=== PATIENT | male | born 1990 | race Caucasian/White ===

== ENCOUNTER 2020-01-06 20:35 | Emergency (ER) | payer BC, SELFPAY ==
[2020-01-06 20:40] VITALS: BP 140/88; PULSE 69; RESP 16; TEMP 36.6; O2SAT 96
--- NOTE | 2020-01-06 20:55 | W.ED.GENAD ---
Discharge Plan Disposition Patient Disposition: HOME Condition: Stable Discharge Details Chief Complaint: EyeProblem Clinical Impression: Corneal abrasion, right, Chemosis of right conjunctiva Primary Care Provider: Derik Donis ED Provider: Nel King Home Meds and New Rx's Prescriptions: New polymyxin B sulf-trimethoprim 10,000 unit- 1 mg/mL drops 2 drp OP Q3H 7 Days Qty: 10 RF: 1 No Action No Known Home Meds RF: 0 Discharge Instructions Instructions: Corneal Abrasion (ED) Additional Instructions: Use drops as directed you may patch her eye for comfort if needed. Wear sunglasses as discussed. Follow-up with ophthalmology [facility] within 3 to 5 days. Do not rub or put anything into your eye other than eyedrops. [address] , [place] [address] ? ~1.6 mi Follow up with primary care provider in 3-5 days. Return to ED sooner if any worsening or concerns. Increase oral fluids. Please take Tylenol or Ibuprofen with food every 4-6 hours as needed for pain and swelling. Referrals: Boris Ham MD [ [facility] STAFF PHYSICIAN] - Medical Decision Making 21-year-old male presents to the ER with right eye erythema, irritation which began approximately 2 hours ago while at the gym. Patient states that he did not know if something got into his eye but felt the sensation that something was in his eye and was rubbing his eye. He presents with conjunctival swelling, injected conjunctiva and clear tearing. He denies any blurry vision visual acuity upon initial presentation is 20/20. Please see Peng lamp eye exam as noted in PE above. No foreign body visualized, there was uptake of dye as noted above, fluorescein was rinsed out with saline eyedrops. Patient tolerated well. Patient placed on polymyxin B trimethoprim ophthalmic drops 2 drops to the affected eye every 3 hours while awake x7 days. Instructed to follow-up with [facility] eye care within 3 to 5 days. Verbalizes understanding. Discussed option to patch eye if needed and to wear sunglasses. Strict return instructions discussed. This text was generated using [employer]ed[employer] system, please disregard any oddities of phrase or misspellings. HPI General Mode of arrival: ambulatory. Date/Time Provider Initiated Documentation: 01/06/20 20:44. Limitations to Documentation: no limitations. Information obtained by: patient. HPI Narrative: 21-year-old male presents to the ER with right eye erythema, irritation which began approximately 2 hours ago while at the gym. Patient states that he did not know if something got into his eye but felt the sensation that something was in his eye and was rubbing his eye. He presents with conjunctival swelling, injected conjunctiva and clear tearing. He denies any blurry vision visual acuity upon initial presentation is 20/20. Related Data Home Medications Medication Instructions Recorded Confirmed Unknown [No Known Home Meds] 01/06/20 01/06/20 polymyxin B sulf-trimethoprim 2 drp OP Q3H 7 Days #10 ml 01/06/20 Previous Rx's Medication Instructions Recorded polymyxin B sulf-trimethoprim 2 drp OP Q3H 7 Days #10 ml 01/06/20 Allergies Allergy/AdvReac Type Severity Reaction Status Date / Time No Known Allergies Allergy Unverified 01/06/20 20:44 General Stated Complaint: EyeProblem RYDER: 4 Review of Systems All systems reviewed & are unremarkable except as noted in HPI and below Constitutional Constitutional: Reports as per HPI, Denies body ache(s), Denies fatigue, Denies headache(s) and Denies weakness Eyes Eyes: Denies blurry vision, Reports irritation (Right eye, swollen conjunctiva), Denies loss of peripheral vision, Denies loss of vision and Denies photophobia ENT Ears, Nose, Mouth, and Throat: Denies dental pain, Denies dysphagia, Denies dizziness, Denies otalgia, Denies facial pain, Denies headache(s), Denies mouth pain, Denies nasal discharge, Denies nasal trauma, Denies tinnitus, Denies sinus pain, Denies sinus pressure and Denies throat swelling Cardiovascular Cardiovascular: Reports system reviewed and no additional complaints, except as documented Respiratory Respiratory: Reports system reviewed and no additional complaints, except as documented Gastrointestinal Gastrointestinal: Denies dysphagia Neurologic Neurologic: Denies dizziness, Denies headache(s), Denies loss of vision and Denies weakness Endocrine Endocrine: Denies fatigue Allergic/Immunologic Allergic/Immunologic: Denies throat swelling [facility] Medical History History of torn meniscus of left knee (Acute) Social History Smoking/Tobacco Use Status: Never Alcohol Intake: never Substance use type: does not use Do you feel safe at home: Yes Do you feel safe in your relationship?: Yes Exam Narrative Exam Narrative: Constitutional: Alert and oriented x3. Appears stated age. Normal body habitus. Head: Normocephalic, no trauma. Eyes: Pupils PERRLA, Red reflex noted, EOM's intact. Right lower eyelid slightly swollen. Lateral conjunctive a swollen, injected conjunctivea. ENT: Bilateral TM's WNL, External ear normal to inspection, no mastoid TTP, swelling, or erythema, Nasal turbinates WNL, no nasal discharge. Normal dentition, Posterior pharynx WNL, no exudate. Chest: RRR, Normal S1, S2, distal pulses intact. Resp: Lungs clear to auscultation bilaterally, no wheezes, rales, or rhonchi. Musculoskeletal: Normal gait, 5/5 strength to all four extremities. Skin: No suspicious rashes or lesions. Capillary refill less than 2 sec. Neurologic: Cranial nerves II-XII intact. Alert and oriented x 3. DTR's intact. Hematologic/Lymphatic: No ecchymosis, no lymphadenopathy. Eyes Visual Ogden: normal visual ogden by confrontation Alignment and Position: alignment normal Periorbital: periorbital findings abnormal right (Lower lid swollen) Conjunctivae: conjunctival abnormality right conjunctival chemosis, conjunctival injection and discharge (Clear tearing) Cornea: corneas abnormal on the right fluorescein used, abrasion central, linear and at the following clock position (9 and 3) and edema; with no foreign body noted and without ulcerations and fluorescein used Eyes/upper lids images: 1. Corneal abrasion, uptake dye 2. Corneal abrasion, dye uptake 3. corneal abrasion, dye uptake 4. Swelling to conjunctiva Chemosis Course Vital Signs Vital signs: Vital Signs Temperature 36.6 C 01/06/20 20:40 Pulse 69 01/06/20 20:40 Respiratory Rate 16 01/06/20 20:40 Blood Pressure 140/88 01/06/20 20:40 Pulse Oximetry 96 01/06/20 20:40 Temperature 36.6 C 01/06/20 20:40 Temperature Source Temporal Artery Scan 01/06/20 20:40 Pulse 69 01/06/20 20:40 Respiratory Rate 16 01/06/20 20:40 Respiratory Effort Non-Labored 01/06/20 20:44 Blood Pressure 140/88 01/06/20 20:40 Pulse Oximetry 96 01/06/20 20:40 Pain Level 6 01/06/20 20:40
[2020-01-06] MEDS: Tetracaine 0.5% 4 ML BTL (21:16)
[2020-01-06] MEDS: Fluorescein STRIPS 100/BOX 1 MG (21:16)
[2020-01-06] MEDS: Balanced Salt Solution 15 ML BTL (21:16)
[2020-01-06 22:00] VITALS: BP 140/88; PULSE 69; RESP 16; TEMP 36.6; O2SAT 96
== END 2020-01-06 22:10 | disposition home or self-care (01) ==
LOC: ER 22:02
PROVIDERS: Emergency Provider Registered Nurse Emergency; PCP Internal Medicine
DX: S05.01XA Injury of conjunctiva and corneal abrasion without foreign body, right eye, initial encounter (principal); H11.421 Conjunctival edema, right eye; X58.XXXA Exposure to other specified factors, initial encounter
CPT/HCPCS: 99284; 99283

== ENCOUNTER 2021-12-24 11:32 | Outpatient (REF) | payer BC, SELFPAY ==
[2021-12-24 14:51] LABS: Abs Immature Grans 0.03 10^3/uL (0.0-0.06); Absolute Basophil Count 0.05 10^3/uL (0.0-0.2); Absolute Eosinophil Count 0.12 10^3/uL (0.0-0.7); Absolute Lymphocyte Count 0.87 10^3/uL (1.2-3.4); Absolute Monocyte Count 0.59 10^3/uL (0.1-0.8); Absolute Neutrophil Count 5.84 10^3/uL (1.2-6.7); Basophils % 0.7; Eosinophils % 1.6; HCT 43.6 % (40.0-50.0); HGB 14.4 g/dL (13.5-17.5); Immature Grans % 0.4; Lymphocytes % 11.6; MCH 29.9 pg (27.0-33.0); MCV 91 fL (80-95); MPV 9.1 fL (8.0-11.0); Monocytes % 7.9; Neutrophils % 77.8; Platelet Count 245 10^3/uL (130-400); RBC 4.82 10^6/uL (4.36-5.78); RDW 11.7 % (11.8-14.1); RDW-SD 39.1 fL
[2021-12-24 14:53] LABS: ESR 4 mm/hr (0-15)
[2021-12-25 09:30] LABS: Cyclic Citrullinated Peptide <2.5 U/mL (<5.0)
[2021-12-25 11:00] LABS: Lyme Ab w Rflx to Lyme Confirm Negative (Negative)
== END 2021-12-24 11:33 | disposition home or self-care (01) ==
LOC: NCHCN 11:32
PROVIDERS: PCP Internal Medicine; Visit Provider Internal Medicine
DX: M13.80 Other specified arthritis, unspecified site (principal)
CPT/HCPCS: 85652; 86200; 85025; 86140; 86618

== ENCOUNTER 2023-07-07 15:08 | Outpatient (REF) | payer BC, SELFPAY ==
[2023-07-08 10:47] LABS: IgA 188 mg/dL (85-499); Interpretation (See Note); Tissue Transglutaminase IgA <4.0 CU (<20.0)
== END 2023-07-07 15:09 | disposition home or self-care (01) ==
LOC: NCHCN 15:08
PROVIDERS: PCP Internal Medicine; Visit Provider Family Medicine
DX: R10.9 Unspecified abdominal pain (principal)
CPT/HCPCS: 82784; 83516

== ENCOUNTER 2023-10-14 08:32 | Outpatient (REF) | payer BC, SELFPAY ==
[2023-10-16 17:08] LABS: Calprotectin <50.0 mcg/g
== END 2023-10-14 08:33 | disposition home or self-care (01) ==
LOC: NCHCN 08:32
PROVIDERS: PCP Family Medicine; Visit Provider Family Medicine
DX: K52.9 Noninfective gastroenteritis and colitis, unspecified (principal)
CPT/HCPCS: 87329; 83630; 83993

== ENCOUNTER 2024-12-22 14:15 | Outpatient (CLI) | payer OTHER, SELFPAY ==
--- NOTE | 2024-12-22 14:00 | DI.RAD_ITS ---
Exam(s) XR KNEE LT 3V AP,LAT,ARELY EXAM: XR KNEE LT 3V AP,LAT,ARELY CLINICAL HISTORY: left knee pain. TECHNIQUE: 2D digital imaging was performed. Three views. COMPARISON: No exams were available for comparison FINDINGS: BONES: No acute fracture is present. No bony destructive lesion is seen. Bony defect related to ACL repair. JOINTS: The knee is normally aligned. A moderate to large joint effusion is seen. Smoothly marginated tiny bony density projecting near the tibial spines. The joint spaces are maintained. Minimal periarticular spurring. SOFT TISSUE: Normal. IMPRESSION: Joint effusion. Minimal degenerative changes. Status post ACL repair. DATA REPOSITORY: RADIATION DOSE DELIVERED:
== END 2024-12-22 14:16 | disposition home or self-care (01) ==
LOC: DIORS 14:15
PROVIDERS: PCP Family Medicine; Visit Provider Physician Assistant
DX: M25.562 Pain in left knee (principal); M17.12 Unilateral primary osteoarthritis, left knee
CPT/HCPCS: 73562

== ENCOUNTER 2024-12-27 03:36 | Outpatient (CLI) | payer OTHER, SELFPAY ==
--- NOTE | 2024-12-27 09:00 | DI.MRI_ITS ---
Exam(s) MR LOWER JOINT LT WO EXAM: MR LOWER JOINT LT WO CLINICAL HISTORY: PAIN, BUCKET HANDLE TEAR MEDIAL MENISCUS LT KNEE, S83.212A. TECHNIQUE: Multiplanar multisequence MRI was performed. COMPARISON: MR MR KNEE LEFT WO CONTRAST from 08/17/2019 CR XR KNEE LT 3V AP,LAT,ARELY from 12/22/2024 FINDINGS: BONES: There is no fracture or contusion pattern. Bony defect in the distal femur and proximal tibia related to previous ACL repair. JOINTS: A moderate-sized joint effusion is present. Articular cartilage: Patellofemoral joint: There is a focal defect at the patellar apex extending down to but not involving underlying bone. There is some fissuring in the adjacent aspect of the distal femoral cartilage. This is new when compared the prior exam. Medial femoral tibial joint: Articular cartilage is unremarkable. Lateral femoral tibial joint: Articular cartilage is unremarkable. LIGAMENTS/TENDONS: Anterior Cruciate: The ACL repair is intact. Posterior Cruciate: Unremarkable. Medial Collateral:Unremarkable. Lateral Collateral ligament complex: Unremarkable. Extensor mechanism: Unremarkable. Medial retinaculum: Unremarkable. Lateral retinaculum: Unremarkable. Popliteus: Unremarkable. MENISCI: The medial meniscus again shows a bucket-handle tear which appears unchanged when compared with the previous exam. There is has been some further degeneration of the medial meniscus. The lateral meniscus is unremarkable. MUSCLES: Mild edema in the posterior musculature. SOFT TISSUES: Artifact in the medial soft tissues related to previous surgery. IMPRESSION: The ACL repair is intact. Bucket-handle tear of the medial meniscus which appears unchanged from the prior exam. There are degenerative changes of the medial meniscus. Focal cartilage defect in the patellar apex and small defects in the adjacent aspect of the distal femur. Moderate-sized joint effusion. DATA REPOSITORY:
== END 2024-12-27 03:56 ==
PROVIDERS: PCP Family Medicine; Visit Provider Student in an Organized Health Care Education/Training Program
DX: S83.212A Bucket-handle tear of medial meniscus, current injury, left knee, initial encounter (principal); X58.XXXA Exposure to other specified factors, initial encounter
CPT/HCPCS: 73721

== ENCOUNTER 2025-01-06 09:26 | Day surgery (SDC) | payer OTHER, SELFPAY ==
[2025-01-06] VITALS (21 sets, daily range): BP systolic 89–133; BP diastolic 42–78; PULSE 63–84; RESP 14–16; TEMP 35.9–36.8; O2SAT 88–100; BMI 20.9
--- NOTE | 2025-01-06 07:14 | W.PM.DSUDISC ---
Date of service: 01/06/25 Discharge Plan Disposition Patient Disposition: Home Condition: Stable Discharge Details Attending Provider: Gordon Moore Primary Care Provider: Chinedu Mcfarlane Home Meds and New Rx's Prescriptions: New aspirin 81 mg capsule 81 mg PO BID 14 Days Qty: 28 0RF naproxen 250 mg tablet 250 - 500 mg PO BID PRN (Reason: moderate pain and swelling) Qty: 40 0RF oxycodone 5 mg tablet 5 - 10 mg PO .q4-6h MDD 30 mg PRN (Reason: severe pain) Qty: 18 0RF Continued mecobalamin (vitamin B12) 500 mcg tablet,chewable 500 mcg PO DAILY Discharge Instructions Additional Instructions: Surgery: Left knee arthroscopy with subtotal medial meniscectomy, trochlear chondroplasty, and remove of hardware 01/06/25; Recurrent failed bucket-handle medial meniscus tear, intact prior ACL reconstruction. Activity: Weightbearing as tolerated. Advance range of motion as comfort allows. No knee brace or crutches needed as soon as comfortable. Recommend avoiding sports, pivoting, and squatting for 6-8 weeks. A physical therapy prescription will be sent electronically to start in about 3 weeks. Prescriptions: Aspirin 81 mg take 1 daily to prevent a blood clot for 14 days, starting tomorrow Naproxen 250 mg take 1-2 every 12 hours with a meal as needed for moderate pain Oxycodone 5 mg take 1-2 every 4-6 hours as needed for severe pain You may use [id number]-wos-[id number] Tylenol (acetaminophen) as needed for mild pain. These pain medications may be taken all at once or in different combinations as needed. Also, recommend Colace (docusate) as a stool softener as surgery and pain medicine cause constipation. You may try zyqh-jvc-[id number] diphenhydramine (Benadryl) 25-50 mg nightly as a sleep aid Dressings: Leave dressing in place for 3 days. May then remove and leave open to air or cover incisions with Band-Aids. Leave the sticky Steri-Strips in place until they fall off or remove them after you shower. May shower after 5 days. Follow-up: 10-[address] Moore You may take off the leg compression stockings this evening at home. You may also leave them on a few days longer if you have a history of leg swelling or edema. Let us know right away if you develop any redness, drainage, fevers, chest pain, or trouble breathing. Do not drink alcohol or drive for at least 24 hours after anesthesia. Please call the office during business hours with any questions or concerns. Discharge Orders Discharge Orders: Discharge Order (Routine); Ordered 01/06/25 Ordered By: Edwige Ibrahim DS: Diagnosis Discharge Diagnosis (1) Bucket handle tear of medial meniscus of left knee: Status: Acute
--- NOTE | 2025-01-06 07:23 | ROE_ITS ---
Operative Note Operative Note PRE-OP DIAGNOSIS: Left knee 1. Recurrent displaced bucket-handle medial meniscus tear/failed revision repair 2. Prior ACL reconstruction POST-OP DIAGNOSIS: same PROCEDURE: Left knee 1. Subtotal medial meniscectomy, CPT #83750 2. Chondroplasty, CPT #45770: Trochlea 3. Removal hardware, CPT #74597: Permanent plastic and suture material from prior failed meniscus repair SURGEON: Gordon Moore WET PROCESS ASSISTANT HEAD MILLER: None None ANESTHESIA TYPE: Local By Surgeon and General LMA/ETT Refer to Anesthesia Record ESTIMATED BLOOD LOSS: 5 PATHOLOGY: none sent TOURNIQUET TIME: 0 Patient was transported to: PACU Patient's condition: stable Indications: Please see complete medical record for details. Findings: Exam under anesthesia: Resting about 5-10 degrees short of full extension, full extension once relax. Stable Hermelinda with firm endpoint probably a couple millimeters of increased translation. Negative pivot shift. Stable varus valgus. Arthroscopic findings: About 2 x 2 cm area of central trochlea moderate to high- grade cartilage loss chondromalacia with some loose unstable edge flaps and a central about 1 x 1 cm cartilage unstable island. Mild to moderate patellar and medial compartment chondromalacia. Intact lateral meniscus lateral cartilage. Intact prior ACL reconstruction. Displaced medial bucket-handle meniscus tearing with the displaced tissue having poor quality and evidence of prior surgery with loose sutures and holes from needle punctures. Diminutive meniscus remnant posterior horn through body with some horizontal tearing into the capsule. Moderately significant narrowing of the medial compartment. Procedure Description: In the operating room, general anesthesia was induced. The patient was positioned supine on the operating room table. All bony prominences were well- padded. Preoperative antibiotics were administered. The knee was prepped and draped in the usual sterile fashion. The correct patient, procedure, and side of the procedure were all verified prior to incision. Exam under anesthesia was performed. 10 cc of 0.25% bupivacaine containing epinephrine was infiltrated about the planned anteromedial and anterolateral knee arthroscopy portals. An additional 10 cc was infiltrated about the medial compartment. Prior portals were established and a complete diagnostic arthroscopy was performed with relevant findings detailed above. The mechanical shaver was used to remove some inflamed synovium from the suprapatellar, patellofemoral, and anterior intercondylar areas. The central trochlea had obvious cartilage problem with evidence of prior cartilage surgery. The x-rays and MRI had a central area concerning for potential loose body and on probing the central cartilage region and the lesion was loose and unstable and had to be removed with the biters and then shaver. The remnant and margins were then contoured as best possible with the torpedo shaver. The medial meniscus was displaced into the intercondylar area. The displaced tissue could be reduced into the medial compartment, but it was of poor quality. It was fibrinous and falling apart on simple probing. There was still multiple punctures from prior repairs needle all?inside devices and suture material and permanent plastic material loose on the displaced tissue and on the remnant. It was not at all appropriate for a third attempted repair. The shaver was brought in and quite readily transected and removed the majority of the displaced tissue. Into the more anterior part of the body biters were used followed by the torpedo shaver to contour the margin. The shaver was also used as well as some graspers to remove some permanent suture material and permanent plastic all inside device from the body area. It was challenging to access the posterior horn nearing the root due to rather significant narrowing, but various technique s were used in the majority of the displaced posterior horn tissue removed with biters and contoured the trapezial shaver. There was moderate medial chondromalacia that was minimally debrided. The remaining horizontal diminutive peripheral remnant was lightly resected of some horizontal tearing and some fibrinous tissue and to ensure no prominent prior repair devices causing any trouble. Under direct arthroscopic visualization an 18-gauge needle was passed into the knee from superolateral into the suprapatellar pouch. The knee was copiously irrigated with arthroscopic fluid until there was a clear effluent before being drained of all fluid. The anteromedial and anterolateral portals were closed in 3-0 Monocryl in a buried interrupted fashion. 10 cc of 0.25% bupivacaine was infiltrated into the knee through the previously placed needle. Mastisol, Steri-Strips, and 4 x 4 gauze were applied over the incisions. The knee was then wrapped gently with an ROULA comressive bandage. The patient awoke from anesthesia without complication and was transferred to the recovery room in a stable condition. Despite the young age, the degenerative changes present would contraindicate any meniscus allograft transplant. The prior ACL reconstruction with some laxity and trochlear chondromalacia might make total knee arthroplasty versus partial medial unicondylar knee arthroplasty the best definitive treatment if arthritis progresses. Date of Procedure: 01/06/25
[2025-01-06] MEDS: Lactated Ringers 1,000 ML 30 ML IV (10:06)
--- NOTE | 2025-01-06 10:26 | W.ANESPRE ---
General Info Date of Service Date Performed: 01/06/25 Height: 6 ft Weight: 70 kg Body Mass Index (BMI): 20.9 Surgical Procedure: Operation Date: 01/06/25 10:55 Proposed Procedure Side Surgeon p Knee Arthroscopy w/ bucket handle medial Meniscus Repair vs meniscectomy, any indication chondral and synovial surgery Left Gordon Moore MD Meds Allergies and Home Medications Allergies Allergy/AdvReac Type Severity Reaction Status Date / Time No Known Allergies Allergy Verified 01/06/25 09:41 Home Medication ?Medication ?Instructions ?Recorded mecobalamin (vitamin B12) 500 mcg 500 mcg PO DAILY 05/26/24 chewable tablet Current Visit Medications: Current Medications Generic Name Dose Route Start Last Admin Trade Name Freq PRN Reason Stop Dose Admin Ringer's Solution 1,000 mls @ 30 mls/hr 01/06/25 06:00 01/06/25 10:06 IV 01/06/25 23:59 30 mls/hr INFUSION ANGELES Administration Cefazolin Sodium/Dextrose 2 gm in 50 mls @ 100 mls/hr 01/06/25 06:00 Ancef Duplex IVPB 01/06/25 23:59 PREOP ANGELES Tranexamic Acid/Sodium Chloride 1,000 mg in 100 mls @ 600 mls/hr 01/06/25 06:00 IVPB 01/06/25 23:59 PREOP ANGELES IV Miscellaneous Supplies 1 each 01/06/25 06:00 Iv Access IV 01/06/25 23:59 DIRECTED ANGELES Oxycodone HCl 0 mg 01/06/25 07:13 Oxycodone 5 Mg Tab PO 02/05/25 07:12 Q3H PRN PRN Pain Sodium Chloride 0 ml 01/06/25 06:00 Normal Saline Flush 10 Ml Syr IV 01/06/25 23:59 PRN PRN Sodium Chloride 0 ml 01/06/25 06:00 Normal Saline 10 Ml Vial IJ 01/06/25 23:59 DIRECTED PRN Sterile Water 0 ml 01/06/25 06:00 Water,Injection,Sterile 10 Ml Vial IJ 01/06/25 23:59 DIRECTED PRN PFSH Active Problems Active Problems: Problem Status Onset Code Bucket handle tear of medial meniscus of left knee Acute 12/17/24 S83.212A Normal hearing exam Acute Z01.10 Tinnitus of right ear Acute H93.11 Medical History Medical History Vegan diet History of gluten intolerance Healthy adult on routine physical examination Chronic diarrhea Impacted cerumen Somatoform autonomic dysfunction History of torn meniscus of left knee Surgical History Surgical History Hx of arthroscopic knee surgery x3 Hx of wisdom tooth extraction Hx of reconstruction of anterior cruciate ligament tear Tobacco Smoking/Tobacco Use Status: Never Passive smoking exposure: No Alcohol Alcohol Intake: never Substance Use Substance use: Never Substance use type: does not use Vital Signs and Lab Results Vital Signs Most Recent Vital Signs in EMR: Most Recent Vital Signs Temp Pulse Resp BP Pulse Ox 36.8 C 81 16 133/78 100 01/06/25 09:35 01/06/25 09:35 01/06/25 09:35 01/06/25 09:35 01/06/25 09:35 Anesthesia Assessment and Plan Anesthesia History Personal History: No History of Anesthesia Complications Family History: No Family History of Anesthesia Complications Exercise Tolerance Exercise Tolerance: Metabolic Equivalents>4 Pertinent Negatives Pertinent Negatives: No Symptoms of GERD, No Major Cardiovascular Symptoms or Complaints, No Major Pulmonary Symptoms or Complaints and No History of CVA/TIA Cardiac & Pulmonary Exam Cardiac Exam: Normal S1/S2 Heart Sounds Pulmonary Exam: Clear Bilateral Breath Sounds Implantable Cardiac Device Does patient have a Pacemaker or an ICD?: No Airway Exam Known Difficult Airway: No Mallampati Class: 1 Mouth Opening: Normal (> 3cm) Thyromental Distance: Greater than 3 cm Neck Range of Motion: Full ROM Neck Circumference: Normal Teeth Condition: Normal Dentition ASA Classification ASA Score: ASA 2 Emergency Case?: No NPO Status NPO Status: NPO Clears >2 hours, Solids >8 hours Anesthesia Plan Resuscitation Status: Full Code Anesthesia Technique: General Anesthesia Airway Planned: Endotracheal Tube Monitors Used: Standard Monitors
[2025-01-06] MEDS: ceFAZolin 2 GM/50 ML BAG IVPB (12:01)
[2025-01-06] MEDS: TRANEXAMIC ACID/SOD. CHL. 1,000 MG/100 ML BAG 600 MG IVPB (12:10)
[2025-01-06] MEDS: Bupivacaine 0.25% Pres-Free W/EPI 30 ML VIAL (12:27)
[2025-01-06] MEDS: EPINEPHrine 10 MG/10 ML ML (12:28)
--- NOTE | 2025-01-06 14:46 | W.ANESPOSTOP ---
Postoperative Evaluation Date, Time and Location Date Performed: 01/06/25 Time Performed: 14:46 Patient Location: Day Surgery Unit Vital Signs Most Recent Imported Vital Signs: Most Recent Vital Signs Temp Pulse Resp BP Pulse Ox 35.9 C L 84 16 112/73 98 01/06/25 14:25 01/06/25 14:25 01/06/25 14:25 01/06/25 14:25 01/06/25 14:25 Pain Score Most Recent Pain Score: Most Recent Pain Score Pain Level 0 01/06/25 14:25 Assessment Mental Status: Arousable with meaningful communication Airway and Respiratory Function: Patent airway with normal (patient baseline) respiratory exam Cardiovascular Function: Hemodynamically Stable Hydration Status: Adequately Hydrated Nausea & Vomiting: No Nausea or Vomiting Pain: Pain is tolerable per patient Peripheral Nerve Block: Patient did not receive a nerve block
== END 2025-01-06 16:58 | disposition home or self-care (01) ==
LOC: SUR 09:26
PROVIDERS: PCP Family Medicine; Visit Provider Student in an Organized Health Care Education/Training Program
PROC: (CPT 29881; principal; 2025-01-06 10:45)
DX: S83.212A Bucket-handle tear of medial meniscus, current injury, left knee, initial encounter (principal); X58.XXXA Exposure to other specified factors, initial encounter
CPT/HCPCS: 29881; 20680; J0131; J0690; J1100; J1885; J2003; J2250; J2405; J2704